=== PATIENT | male | born 1970 | race African-American/Black ===

== ENCOUNTER 2018-03-02 09:46 | Day surgery (SDC) | payer OTHER ==
[2018-03-02 10:03] VITALS: BMI 25.0
[2018-03-02] MEDS ORDERED: DIPHTH,PERTUSS(ACELL),TET 0.5 ML DISP.SYRIN IM ONE (10:40)
[2018-03-02] MEDS ORDERED: IBUPROFEN 600 MG TABLET (FP) PO ONE (10:52)
--- NOTE | 2018-03-02 11:07 | PDOC ---
History of Present Illness - History of Present Illness Initial Comments: 03/02/18 11:19 The patient is a 47 year old male, with no significant PMH, who presents to the emergency department with a lacerated left index finger injury that occurred approximately today at 9:30 am at the work site. 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 The patient reports bleeding and pain to the index finger. The patient reports he is right hand dominant and mentions his last tetanus shot was 2 years ago. The patient denies numbness and tingling. Denies chest pain, shortness of breath, headache and dizziness. Denies fever, chills, nausea, vomit , diarrhea and constipation. Allergies: NKDA Past surgical history: None reported Social history: None reported PCP: None reported <Steve Edmondson - Last Filed: 03/02/18 12:03> - General History Source: Patient Exam Limitations: No Limitations <Christel Duran - Last Filed: 03/02/18 12:27> - General Chief Complaint: Pain, Acute Stated Complaint: LACERATED FINGERS/HAND INJURY (WORK INJURY) Past History <Steve Edmondson - Last Filed: 03/02/18 12:03> - Past Medical History COPD: No - Immunization History Td Vaccination: Yes (2018) - Suicide/Smoking/Psychosocial Hx Smoking History: Never smoked Hx Alcohol Use: No Drug/Substance Use Hx: No <Christel Duran - Last Filed: 03/02/18 12:27> - Past Medical History Allergies/Adverse Reactions: Allergies Allergy/AdvReac Type Severity Reaction Status Date / Time No Known Allergies Allergy Verified 03/02/18 09:59 Home Medications: Ambulatory Orders NK [No Known Home Medication] 03/02/18 Review of Systems - Review of Systems Able to Perform ROS?: Yes Comments:: 03/02/18 11:21 GENERAL/CONSTITUTIONAL: No fever or chills. No weakness. HEAD, EYES, EARS, NOSE AND THROAT: No change in vision. No ear pain or discharge. No sore throat. CARDIOVASCULAR: No chest pain or shortness of breath. RESPIRATORY: No cough, wheezing, or hemoptysis. GASTROINTESTINAL: No nausea, vomiting, diarrhea or constipation. GENITOURINARY: No dysuria, frequency, or change in urination. MUSCULOSKELETAL: +Left index crush injury and laceration. No neck or back pain. SKIN: No rash NEUROLOGIC: No headache, vertigo, loss of consciousness, or change in strength/ sensation. ENDOCRINE: No increased thirst. No abnormal weight change. HEMATOLOGIC/LYMPHATIC: No anemia, easy bleeding, or history of blood clots. ALLERGIC/IMMUNOLOGIC: No hives or skin allergy. <Steve Edmondson - Last Filed: 03/02/18 12:03> *Physical Exam - Vital Signs Last Vital Signs Temp Pulse Resp BP Pulse Ox 97.8 F 66 18 158/98 99 03/02/18 10:00 03/02/18 10:00 03/02/18 10:00 03/02/18 10:00 03/02/18 10:00 <Steve Edmondson - Last Filed: 03/02/18 12:03> - Vital Signs Last Vital Signs Temp Pulse Resp BP Pulse Ox 97.8 F 66 18 158/98 99 03/02/18 10:00 03/02/18 10:00 03/02/18 10:00 03/02/18 10:00 03/02/18 10:00 - Physical Exam General Appearance: Yes: Nourished Neck: positive: Trachea midline Respiratory/Chest: positive: Lungs Clear, Normal Breath Sounds Cardiovascular: positive: Regular Rhythm, Regular Rate, S1, S2 Musculoskeletal: positive: Other (left index finger with laceration over distal ip joing dorsally, irregular , unable to extend at dip, likley tendon injury. distally n/v intact) Integumentary: positive: Other (laceration distal left index finger irregular. deformity noted. ) Neurologic: positive: Fully Oriented, Alert, Normal Mood/Affect <Christel Duran - Last Filed: 03/02/18 12:27> ED Treatment Course - LABORATORY CBC & Chemistry Diagram: 03/02/18 10:45 03/02/18 10:45 - Medications Given in the ED: ED Medications Discontinued Medications Generic Name Dose Route Start Last Admin Trade Name Freq PRN Reason Stop Dose Admin Diphtheria/Tetanus/Acell Pertussis 0.5 ml 03/02/18 10:40 03/02/18 11:05 Boostrix - IM 03/02/18 10:41 0.5 ml .ONCE ONE Administration <Steve Edmondson - Last Filed: 03/02/18 12:03> - LABORATORY CBC & Chemistry Diagram: 03/02/18 10:45 03/02/18 10:45 - RADIOLOGY Radiology Studies Ordered: Category Date Time Status HAND- LEFT [RAD] Stat Radiology 03/02/18 10:40 Ordered <Christel Duran - Last Filed: 03/02/18 12:27> Medical Decision Making - Medical Decision Making 03/02/18 12:[address] Renteria and discussed patients case with Dr. Duran. <Steve Edmondson - Last Filed: 03/02/18 12:03> - Medical Decision Making 03/02/18 11:05 47 yo male with no pmhx here with left index finger crush injury, laceration, and likley extensor tendon injury . plan xray r/o underlying fx. tetanus up to date had within one year. pt right hand dominant. plan hand consult for extensor tendon injury <Christel Duran - Last Filed: 03/02/18 12:27> *DC/Admit/Observation/Transfer - Attestations Scribe Attestion: 03/02/18 11:22 Documentation prepared by Steve Edmondson, acting as medical record specialist for Christel Duran MD. <Steve Edmondson - Last Filed: 03/02/18 12:03> - Discharge Dispostion Decision to Admit order: Yes <Christel Duran - Last Filed: 03/02/18 12:27> Diagnosis at time of Disposition: Laceration, Fracture, finger, distal phalanx, Tendon injury
[2018-03-02] MEDS ORDERED: morphine SULFATE 4 MG/ML VIAL IVPUSH PRN ×2 (11:25→16:14)
[2018-03-02] MEDS ORDERED: ONDANSETRON 4 MG/2 ML VIAL IVPUSH PRN ×3 (11:25→16:14)
[2018-03-02] MEDS ORDERED: AMPICILLIN NA/SULBACTAM NA 1.5 GM in SODIUM CHLORIDE 100 ML IVPB ONE (11:26)
[2018-03-02] MEDS ORDERED: LIDOCAINE HCL 1%, 10 MG/ML (50 mL VIAL) SQ ONE (11:27)
[2018-03-02] MEDS ORDERED: PANTOPRAZOLE 40 MG TABLET (FP) PO SCH (11:30)
[2018-03-02] MEDS ORDERED: LACTATED RINGERS SOLUTION 1,000 ML IV SCH ×3 (11:30→16:14)
--- NOTE | 2018-03-02 11:33 | HP ---
Admitting History and Physical - Admission Chief Complaint: left index finger crush injury History of Present Illness: 47 yo RHD male no significant PMH who presents to the emergency department with a lacerated left index finger injury that occurred approximately today at 9:30 am at the work site. 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 The patient reports bleeding and pain to the index finger. The patient reports he is right hand dominant and mentions his last tetanus shot was 2 years ago. we were asked to assess. History Source: Patient, Medical Record Limitations to Obtaining History: No Limitations - Smoking History Smoking history: Never smoked - Alcohol/Substance Use Hx Alcohol Use: No Home Medications - Allergies Allergies/Adverse Reactions: Allergies Allergy/AdvReac Type Severity Reaction Status Date / Time No Known Allergies Allergy Verified 03/02/18 09:59 - Home Medications Home Medications: Ambulatory Orders NK [No Known Home Medication] 03/02/18 Review of Systems - Review of Systems Constitutional: denies: Chills, Fever Eyes: denies: Blurred Vision, Recent Change in Vision HENT: denies: Difficult Swallowing, Throat Pain Neck: denies: Pain on Movement, Tenderness Cardiovascular: denies: Chest Pain, Palpitations Respiratory: denies: Cough, SOB Gastrointestinal: denies: Abdominal Pain, Indigestion Genitourinary: denies: Burning, Dysuria, Urgency Breasts: reports: No Symptoms Reported. denies: Pain Musculoskeletal: reports: Extremity Pain. denies: Muscle Cramps, Muscle Weakness Integumentary: denies: Blister, Erythema, Rash Neurological: denies: Seizure, Syncope Endocrine: denies: Unexplained Weight Gain, Unexplained Weight Loss Hematology/Lymphatic: denies: Easily Bruised, Excessive Bleeding Psychiatric: denies: Anxiety, Depression Physical Examination Vital Signs: Vital Signs Temperature 97.8 F 03/02/18 10:00 Pulse Rate 66 03/02/18 10:00 Respiratory Rate 18 03/02/18 10:00 Blood Pressure 158/98 03/02/18 10:00 O2 Sat by Pulse Oximetry (%) 99 03/02/18 10:00 Vital Signs Period Temp Pulse Resp BP Sys/Mccullough Pulse Ox Last 24 Hr 97.8 F 66 18 158/98 99 Constitutional: Yes: Well Nourished, No Distress, Calm Eyes: Yes: Conjunctiva Clear, EOM Intact HENT: Yes: Atraumatic, Normocephalic Neck: Yes: Supple, Trachea Midline Cardiovascular: Yes: Regular Rate and Rhythm, S1, S2 Respiratory: Yes: Regular, CTA Bilaterally Gastrointestinal: Yes: Normal Bowel Sounds, Soft. No: Tenderness Renal/: No: CVA Tenderness - Left, CVA Tenderness - Right Extremities: No: Cool, Cyanosis Edema: No Peripheral Pulses WNL: Yes Peripheral Pulses: Left Radial: 2+, Right Radial: 2+, Left Doralis Pedis: 2+, Right Dorsalis Pedis: 2+ Integumentary: No: Jaundice, Rash Wound/Incision: Yes: Draining, Reddened, Bleeding, Unapproximated (Open fracture left index finger ove middle phalanx with exposed extensor tendon.) Neurological: Yes: Alert, Oriented Psychiatric: Yes: Alert, Oriented Imaging - Results X-ray: Report Reviewed, Image Reviewed (left index finger middle phalanx diaplaced with distal inter phalangeal joint dislocation) Problem List - Problems (1) Open fracture of phalanx of left index finger Assessment/Plan: 47yo male RHD with crush injury left index finger, left index finger middle phalanx diaplaced with distal inter phalangeal joint dislocation NPO and IVF hydration IV antibiotics Discussed with patient risks, benefits and alternatives of exploration and debridemnt of left index finger wound, internal fixation of left index finger middle phalanx fracture, possible repair of tendon including but not limited to bleeding, infection, loss of fucntion, amputation, injury to adjacent structures , need for further procedures, ; alternatives include antibiotics, delayed or no surgery - risks of this include failure of nonoperative therapy, sepsis, loss of function, . Patient desires to proceed with operation - will take to OR for above. Informed consent signed for same. Code(s): S62.601B - FRACTURE OF UNSP PHALANX OF L IDX FNGR, INIT FOR OPN FX Qualifiers: Encounter type: initial encounter Phalanx: middle Fracture alignment: displaced Qualified Code(s): S62.621B - Displaced fracture of middle phalanx of left index finger, initial encounter for open fracture (2) Crushing injury of left index finger, initial encounter Code(s): S67.191A - CRUSHING INJURY OF LEFT INDEX FINGER, INITIAL ENCOUNTER (3) Laceration of extensor muscle, fascia and tendon of left index finger at forearm level, initial encounter Code(s): S56.422A - LACERAT EXTN MUSC/FASC/TEND L IDX FNGR AT FORARM LV, INIT (4) Dislocation of distal interphalangeal joint of left index finger Code(s): S63.291A - DISLOCATION OF DISTAL INTERPHALN JOINT OF L IDX FNGR, INIT Qualifiers: Encounter type: initial encounter Qualified Code(s): S63.291A - Dislocation of distal interphalangeal joint of left index finger, initial encounter (5) Fracture, finger, distal phalanx Code(s): S62.639A - DISP FX OF DISTAL PHALANX OF UNSP FINGER, INIT FOR CLOS FX Qualifiers: Encounter type: initial encounter Finger: index finger Fracture type: open Fracture alignment: displaced Laterality: left Qualified Code(s): S62.631B - Displaced fracture of distal phalanx of left index finger, initial encounter for open fracture
[2018-03-02] MEDS ORDERED: LIDOCAINE HCL 2% (20ML MULTI-DOSE VIAL) NR ONE (11:35)
[2018-03-02 12:03] LABS: BASO % 0.9 % (0-2.0); EOS % 1.7 % (0-4.5); HEMATOCRIT 47.3 % (35.4-49); HEMOGLOBIN 15.4 GM/dL (11.7-16.9); LYMPH % 28.6 % (8-40); MCH 27.8 pg (25.7-33.7); MCHC 32.6 g/dl (32.0-35.9); MEAN CELL VOLUME 85.5 fl (80-96); MEAN PLT VOLUME 8.9 fl (7.5-11.1); MONO % 9.4 % (3.8-10.2); NEUT % 59.4 % (42.8-82.8); PLATELET COUNT 215 K/MM3 (134-434); RBC 5.53 M/mm3 (4.00-5.60); WHITE BLOOD COUNT 5.8 K/mm3 (4.0-10.0)
[2018-03-02 12:24] LABS: INR 1.08 (0.83-1.09); PROTHROMBIN TIME (PATIENT) 12.2 SEC (9.7-13.0)
[2018-03-02 12:27] LABS: ACTIVATED PTT 26.7 SECONDS (25.2-36.5)
[2018-03-02 12:34] LABS: ALBUMIN 4.1 g/dl (3.4-5.0); ANION GAP 5 (8-16); BLOOD UREA NITROGEN 15 mg/dL (7-18); CALCIUM 9.3 mg/dL (8.5-10.1); CHLORIDE 103 mmol/L (98-107); CO2 30 mmol/L (21-32); CREATININE 0.9 mg/dL (0.7-1.3); GLUCOSE,RANDOM 81 mg/dL (74-106); SGPT/ALT 31 U/L (12-78); SODIUM 138 mmol/L (136-145); TOT PROT 7.9 g/dl (6.4-8.2)
[2018-03-02 12:35] LABS: ALK PHOS 73 U/L (45-117); POTASSIUM 4.2 mmol/L (3.5-5.1); SGOT/AST 37 U/L (15-37)
--- NOTE | 2018-03-02 13:58 | CON.ID ---
Consult Consult Specialty:: infectious diseases Referred by:: Pacheco Soares Reason for Consultation:: hand injury - History of Present Illness Chief Complaint: hand injury History of Present Illness: 47 yo RHD male no significant PMH who presents to the emergency department with a lacerated left index finger injury that occurred approximately today at 9:30 am at the work site. 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 The patient reports bleeding and pain to the index finger. patients hand is in bandage so wound cannot be assessed Hand surgery is taking the patient to the operating room otherwise the patient appears comfortable and doing well. - History Source History Provided By: Patient Limitations to Obtaining History: No Limitations - Alcohol/Substance Use Hx Alcohol Use: No - Smoking History Smoking history: Never smoked Home Medications - Allergies Allergies/Adverse Reactions: Allergies Allergy/AdvReac Type Severity Reaction Status Date / Time No Known Allergies Allergy Verified 03/02/18 09:59 - Home Medications Home Medications: Ambulatory Orders Amox-Tr/K Cl [Augmentin - 875Mg Tablet] 1 tab PO BID #14 tablet 03/02/18 Oxycodone HCl/Acetaminophen [Percocet 5/325 -] 1 tab PO Q6H #40 tab MDD 4 Review of Systems - Review of Systems Constitutional: reports: No Symptoms Eyes: reports: No Symptoms HENT: reports: No Symptoms Neck: reports: No Symptoms Cardiovascular: reports: No Symptoms Respiratory: reports: No Symptoms Gastrointestinal: reports: No Symptoms Genitourinary: reports: No Symptoms Musculoskeletal: reports: Joint Pain, Other Integumentary: reports: Wound Neurological: reports: No Symptoms Endocrine: reports: No Symptoms Hematology/Lymphatic: reports: No Symptoms Psychiatric: reports: No Symptoms Physical Exam Vital Signs: Vital Signs Temperature 97.8 F 03/02/18 10:00 Pulse Rate 66 03/02/18 10:00 Respiratory Rate 18 03/02/18 10:00 Blood Pressure 158/98 03/02/18 10:00 O2 Sat by Pulse Oximetry (%) 99 03/02/18 10:00 Constitutional: Yes: Well Nourished, No Distress, Calm Eyes: Yes: Conjunctiva Clear HENT: Yes: Atraumatic, Normocephalic Neck: Yes: Supple, Trachea Midline Cardiovascular: Yes: Regular Rate and Rhythm Respiratory: Yes: Regular, CTA Bilaterally Gastrointestinal: Yes: Normal Bowel Sounds, Soft Musculoskeletal: Yes: Other (crush injusry) Extremities: Yes: Other (injury left index finger) Integumentary: Yes: Other Wound/Incision: Yes: Dressing Dry and Intact Neurological: Yes: Alert, Oriented Psychiatric: Yes: Alert, Oriented Labs: CBC, BMP 03/02/18 10:45 03/02/18 10:45 Imaging - Results X-ray: Report Reviewed, Image Reviewed Assessment/Plan Problem List - Problems (1) Open fracture of phalanx of left index finger Code(s): S62.601B - FRACTURE OF UNSP PHALANX OF L IDX FNGR, INIT FOR OPN FX Qualifiers: Encounter type: initial encounter Phalanx: middle Fracture alignment: displaced Qualified Code(s): S62.621B - Displaced fracture of middle phalanx of left index finger, initial encounter for open fracture (2) Crushing injury of left index finger, initial encounter Code(s): S67.191A - CRUSHING INJURY OF LEFT INDEX FINGER, INITIAL ENCOUNTER (3) Laceration of extensor muscle, fascia and tendon of left index finger at forearm level, initial encounter Code(s): S56.422A - LACERAT EXTN MUSC/FASC/TEND L IDX FNGR AT FORARM LV, INIT (4) Dislocation of distal interphalangeal joint of left index finger Code(s): S63.291A - DISLOCATION OF DISTAL INTERPHALN JOINT OF L IDX FNGR, INIT Qualifiers: Encounter type: initial encounter Qualified Code(s): S63.291A - Dislocation of distal interphalangeal joint of left index finger, initial encounter (5) Fracture, finger, distal phalanx Code(s): S62.639A - DISP FX OF DISTAL PHALANX OF UNSP FINGER, INIT FOR CLOS FX Qualifiers: Encounter type: initial encounter Finger: index finger Fracture type: open Fracture alignment: displaced Laterality: left Qualified Code(s): S62.631B - Displaced fracture of distal phalanx of left index finger, initial encounter for open fracture plan will start patient on clinda and zosyn post op will see findings as to how dirty and deep the wound and then make final decision about further abx treatment
[2018-03-02] MEDS ORDERED: CLINDAMYCIN IVPB 300 MG in DEXTROSE 5%-WATER - 48 ML IVPB SCH (14:00)
[2018-03-02] MEDS ORDERED: PIPERACILLIN/TAZOB 3.375 GM 3.375 GM in DEXTROSE 5%-WATER - 50 ML IVPB SCH ×2 (14:00→18:00)
[2018-03-02] MEDS ORDERED: PROMETHAZINE HCL 25 MG/1 ML VIAL IVPUSH PRN (14:19)
[2018-03-02] MEDS ORDERED: ACETAMINOPHEN 325 MG TABLET (FP) PO PRN ×2 (14:19→16:14)
[2018-03-02] MEDS ORDERED: MIDAZOLAM HCL 2 MG/2 ML SINGLE DOSE VIAL ONE (14:29)
[2018-03-02] MEDS ORDERED: PROPOFOL 20 ML ONE (14:30)
[2018-03-02] MEDS ORDERED: LIDOCAINE HCL/PF 2% SDV 5ML VIAL ONE (14:31)
[2018-03-02] MEDS ORDERED: ONDANSETRON 4 MG/2 ML VIAL ONE (14:57)
[2018-03-02] MEDS ORDERED: DEXAMETHASONE SOD PHOSPHATE 4 MG/1 ML VIAL ONE (14:57)
[2018-03-02] MEDS ORDERED: SODIUM CHLORIDE 0.9% P/F 10 ML VIAL IJ ONE (15:02)
[2018-03-02] MEDS ORDERED: ceFAZolin SODIUM 1 GM VIAL ONE (15:02)
[2018-03-02] MEDS ORDERED: ceFAZolin SODIUM 1 GM VIAL IVPB ONE (15:04)
[2018-03-02] MEDS ORDERED: GLYCOPYRROLATE 0.2 MG/1 ML VIAL ONE (15:22)
[2018-03-02] MEDS ORDERED: KETOROLAC TROMETHAMINE 30 MG/1 ML VIAL ONE (15:22)
--- NOTE | 2018-03-02 16:07 | OP ---
Operative Note - Note: Operative Date: 03/02/18 Pre-Operative Diagnosis: crush left index finger, open middle phalanx fracture, avulsion of extensor Operation: left index finger irrigation and debridement of wound, Open reduction and internal fixation with k-wires middle phalanx, repair of extensor tendon Findings: open condylar fracture of middle phalanx left index finger, dislocation of DIP joint and avulsion of extensor tendon Implants: k-wire 0.45 X2 Post-Operative Diagnosis: Same as Pre-op Surgeon: Pacheco Renteria Anesthesiologist/JEWEL GRINDER: Tony Wyatt Anesthesia: General (LMA), Local Estimated Blood Loss (mls): 1 Fluid Volume Replaced (mls): 500 Operative Report Dictated: Yes
--- NOTE | 2018-03-02 16:41 | DS ---
Physical Examination Vital Signs: Vital Signs Temperature 97.8 F 03/02/18 10:00 Pulse Rate 66 03/02/18 10:00 Respiratory Rate 18 03/02/18 10:00 Blood Pressure 158/98 03/02/18 10:00 O2 Sat by Pulse Oximetry (%) 99 03/02/18 10:00 Findings/Remarks: stable post operatively Constitutional: Yes: Well Nourished, No Distress, Calm Eyes: Yes: Conjunctiva Clear, EOM Intact HENT: Yes: Atraumatic, Normocephalic Neck: Yes: Supple, Trachea Midline Cardiovascular: Yes: Regular Rate and Rhythm, S1, S2 Respiratory: Yes: Regular, CTA Bilaterally Gastrointestinal: Yes: Normal Bowel Sounds, Soft. No: Tenderness Renal/: No: CVA Tenderness - Left, CVA Tenderness - Right Extremities: No: Cool, Cyanosis Edema: No Peripheral Pulses WNL: Yes Integumentary: No: Incision, Jaundice, Petechiae Wound/Incision: Yes: Clean/Dry, Well Approximated, Dressing Dry and Intact Neurological: Yes: Alert, Oriented Psychiatric: Yes: Alert, Oriented Labs: CBC, BMP 03/02/18 10:45 03/02/18 10:45 Discharge Summary Reason For Visit: LACERATED FINGERS/HAND INJURY (WORK INJURY) Current Active Problems Crushing injury of left index finger, initial encounter (Acute) Dislocation of distal interphalangeal joint of left index finger (Acute) Fracture, finger, distal phalanx (Acute) Laceration (Acute) Laceration of extensor muscle, fascia and tendon of left index finger at forearm level, initial encounter (Acute) Open fracture of phalanx of left index finger (Acute) Tendon injury (Acute) Procedures: Principal: ORIF left index finger Hospital Course: admitted frome ED for urgent surgery, uneventful procedure, stable for discharge home Condition: Good - Instructions Diet, Activity, Other Instructions: Postoperative instructions: You had a ORIF left index finger on 03/02/[address] Pacheco Renteria of [facility]. Activity: Resume your usual activities gradually, but no heavy exertion or lifting more than 10-15 pounds for 4-6 weeks. Please keep dressing clean and dry until follow up apppointment. Eat lightly at first, but advance to your usual diet as tolerated. Pain: For pain, you may use and alternate Tylenol (acetaminophen) and/or ibuprofen every 6 hours each as needed; this means that you can take one OR the other at 3-hour intervals. If you are prescribed a Tylenol/narcotic combination for severe pain, use it instead of plain Tylenol as needed and switch back when your pain starts decreasing. Do not take more than 4000mg of acetaminophen in a day. Take medications as prescribed or indicated on the labeling. Follow-up: Call Dr. Walls's office at [phone] to make your postop appointment (Monday 1-2 weeks after surgery as advised). Clinic is held in the Diagnostic [facility] on the first floor of [facility]. Call the office if you have: * increasing pain not responsive to pain medication * fever of 101F or higher * unusual or increasing bleeding or drainage from wounds * increasing redness or swelling at wound sites Also, see your primary medical doctor within 1-2 weeks. Referrals: Pacheco Renteria MD [Staff Physician] - Disposition: HOME - Home Medications Comprehensive Discharge Medication List: Ambulatory Orders Amox-Tr/K Cl [Augmentin - 875Mg Tablet] 1 tab PO BID #14 tablet 03/02/18 Oxycodone HCl/Acetaminophen [Percocet 5/325 -] 1 tab PO Q6H #40 tab MDD 4
[2018-03-02 17:41] VITALS: TEMP 97.6
[2018-03-02] MEDS ORDERED: CLINDAMYCIN 300 MG PREMIX IVPB 300 MG/50 ML BAG IVPB SCH (18:00)
[2018-03-02 18:22] VITALS: BP 148/72; PULSE 71
[2018-03-03] MEDS ORDERED: PANTOPRAZOLE 40 MG TABLET (FP) PO SCH (10:00)
--- NOTE | 2018-03-08 14:49 | OP ---
DATE OF OPERATION: 03/02/2018 PREOPERATIVE DIAGNOSIS: Crush injury left index finger, open middle phalanx fracture avulsion of extensor tendon. POSTOPERATIVE DIAGNOSIS: Crush injury left index finger, open middle phalanx fracture avulsion of extensor tendon. PROCEDURE: Left index finger irrigation and debridement of the wound; open reduction, internal fixation with Hugh wires, middle phalanx and repair of extensor tendon. ATTENDING SURGEON: Pacheco Renteria MD CERAMICS TECHNICIAN: ANESTHESIOLOGIST: Yoselin Perez MD ANESTHESIA: General with local. Local consists of 0.5% Marcaine, a total of 20 mL given in a digital block fashion. ESTIMATED BLOOD LOSS: 1 mL. INTRAVENOUS FLUID ADMINISTERED: 500 mL of crystalloid. IMPLANTS: Hugh wire. 0.045 x2. INSTRUMENTS USED TO DEBRIDE THE WOUND: Scalpel and scissors. TOURNIQUET PRESSURE: 250 mmHg. TOURNIQUET TIME: 38 minutes BRIEF FINDINGS: Open condylar fracture, middle phalanx, left index finger. Dislocation of the distal interphalangeal joint with avulsion of the extensor tendon upon its insertion at the distal phalanx. INDICATION: Patient is a 47-year-old male presenting after a crush injury at work to his left index finger. He was counseled regarding risks, benefits, and alternatives to surgical fixation and debridement of his wound and repair. He signed informed consent and was taken for the procedure. DESCRIPTION OF PROCEDURE: Patient was brought to the operating room. He was placed in supine position on the operating table with the left arm extended at 90 degrees perpendicular to the body's midline axis. Lower extremities had SCDs placed to compression. Patient was induced with general anesthesia. He was endotracheally intubated by Anesthesia without incident. He received intravenous antibiotics prior to the incision. A ring block had been applied in the emergency department. Formal timeout was completed, identifying the operative site and the digit. With all parties in agreement, we began first with the dorsal approach to a regular laceration that was focal over the distal aspect of the middle phalanx of the index finger. A linear incision was used to open the wound and extend it with a 15-blade scalpel. It was deepened and went through subcutaneous tissue. Care was taken to dissect down with bipolar cautery, controlling the superficial venous branches. Scissors and scalpel were used to debride the wound of foreign debris. This was done under magnification. Once complete, it was clear that there was a small irregular opening with avulsion of the tendon. The distal interphalangeal joint was also dislocated. This was re-sited, at which point under XiSCan guidance we passed a Hugh wire through and through the midline axis of the distal phalanx. Care was taken to guide it through the midline axis to the joint, at which point the middle phalanx condylar fracture, which was T-shaped, was then reduced after fracture debridement, and the condyles were cross-fixed with a Hugh wire perpendicular to the initial placement. The wire was cut and bent to shape, was checked in 2 axes. We then proceeded with driving and fixing the distal interphalangeal joint through the midbody of the middle phalanx to its base. There was still flexion allowed through and through the proximal phalanx. All joints were fixed in neutral extension. The site was irrigated, at which point we turned our attention to the extensor tendon. Where it had avulsed at the middle phalanx it was repaired with Ethibond 2-0 stitch using a modified Huddleston stitch as its core repair. Epitendinous repair was then proceeded with 6-0 Prolene. We then proceeded to approximate the skin edges. The skin edges were approximated with 4-0 nylon. After we were satisfied with the fixation, the pins were cut and bent to shape and then capped. We then turned our attention finally to final x-rays, had adequately reduced the fracture and improved the fixation across the joint. After the skin was cleaned, a sterile dressing was placed. This was Bacitracin, Xeroform, 4 x 4 gauze, and a resting splint in a position of safety. The patient was awoken from general anesthesia, having tolerated the procedure well. He was given instructions to follow up in a period of 2 weeks. He was returned to recovery in stable condition. All counts were correct at the conclusion of the case. The patient was stable throughout the procedure. MD LOTUS Veronica/[id number]
== END 2018-03-02 18:20 | disposition home or self-care (01) ==
LOC: JER 09:46 → JASU-SURG 12:47
CPT/HCPCS: 36415; 73130-TC-LR-FY; 76000-TC-FY; 80053; 85025; 85610; 85730; 90715; 94760; 99284-25